=== PATIENT | female | born 1990 | race Caucasian/White ===

== ENCOUNTER 2018-05-05 16:45 | Emergency (ER) | payer OTHER ==
[~2018-05-05] VITALS: Ht 165.1 cm; Wt 93.0 kg
[2018-05-05 17:03] VITALS: Ht 165.1 cm; Wt 93.0 kg
[2018-05-05 18:03] VITALS: BP 128/74
== END 2018-05-05 18:03 | disposition home or self-care (01) ==
LOC: ED 16:45
DX: S63.615A Unspecified sprain of left ring finger, initial encounter (principal); W22.8XXA Striking against or struck by other objects, initial encounter; Y93.89 Activity, other specified; Y92.89 Other specified places as the place of occurrence of the external cause; Y99.8 Other external cause status
CPT/HCPCS: J1885; Q0092